=== PATIENT | female | born 1950 | race African-American/Black ===

== ENCOUNTER 2020-10-31 23:50 | Emergency (ER) | payer OTHER ==
[~2020-10-31 23:50] MED LIST: COLACE100 MG PO; COZAAR 25 MG TA25 MG PO; FLEXERIL PO; HYDROCODONE-AP1 EAC6 PO; LIPITOR 20 MG T20 M1 PO; METHOCARBAMOL500 M2 PO; MOBIC15 MG PO; NIFEDIPINE10 MG PO; NORCO 5-325 TA1 EACH PO; NORVASC5 MG PO; PAXIL10 MG PO; ROBAXIN 750 MG750 M1 PO; TYLENOL325 MG PO; [UNRECOGNIZED DRUG - OTHER] PO
[2020-11-01 03:21] VITALS: BP 131/89
== END 2020-11-01 03:25 | disposition home or self-care (01) ==
LOC: ER 23:50
DX: M79.661 Pain in right lower leg (principal); I10 Essential (primary) hypertension; M32.9 Systemic lupus erythematosus, unspecified; E11.9 Type 2 diabetes mellitus without complications; I73.00 Raynaud's syndrome without gangrene; Z79.899 Other long term (current) drug therapy; Z88.0 Allergy status to penicillin; Z88.2 Allergy status to sulfonamides; Z88.5 Allergy status to narcotic agent